=== PATIENT | male | born 1965 | race Caucasian/White ===

== ENCOUNTER 2017-06-25 09:33 | Emergency (ER) | payer BC ==
[2017-06-25] MEDS ORDERED: FUROSEMIDE 20 MG/2 ML VIAL IVP STA (09:52)
--- NOTE | 2017-06-25 09:54 | ED Physician Documentation ---
History of Present Illness - Stated complaint Stated Complaint: SWOLLEN LEGS - Chief complaint Chief Complaint: Ext Problem - History obtained from History obtained from: Patient - Additonal information Additional information: The patient is a 52-year-old male who complains of swelling of his lower extremities bilaterally. He has had swelling of his legs since shortly after surgery 9 days ago, when he had a hemorrhoid operation under general anesthesia. The swelling of his feet and ankles has been getting slightly better over the past 2 days, but is concerning him because of its persistence. He denies any fever, chest pain, cough, nausea or vomiting. He had been using Dilaudid and oxycodone post surgery until 3 days ago when he ran out. Since then he has been using Vicodin, 3 tablets per day. He has noticed decreased bowel movement as well as decreased urine output while on the narcotic medication. He denies history of similar symptoms in the past. Review of Systems Constitutional: denies: Fever Nose: denies: Congestion Throat: denies: Sore throat Cardiac: denies: Chest pain / pressure, Palpitations Respiratory: denies: Dyspnea, Cough GI: denies: Abdominal Pain, Nausea, Vomiting : denies: Dysuria Skin: denies: Rash Musculoskeletal: reports: Extremity swelling. denies: Back pain Neurologic: denies: Focal weakness, Numbness, Headache PD PAST MEDICAL HISTORY - Past Medical History Past Medical History: Yes Cardiovascular: Hypertension Endocrine/Autoimmune: None - Past Surgical History Past Surgical History: Yes General: Other (Inguinal hernia repair) Ortho: Other (Status post ORIF right ankle fracture.) Other past surgical history: 9 days status post hemorrhoidectomy. - Present Medications Home Medications: Ambulatory Orders Medication Instructions Recorded Confirmed Amlodipine Besylate 10 mg PO DAILY 12/09/14 06/25/17 Gabapentin 600 mg PO TID 12/09/14 06/25/17 Losartan Potassium 50 mg PO DAILY 12/09/14 06/25/17 HYDROcod/ACETAM 5/325 [[place] 5/325] 1 - 2 ea PO Q6H PRN 06/25/17 06/25/17 - Allergies Allergies/Adverse Reactions: Allergies Allergy/AdvReac Type Severity Reaction Status Date / Time No Known Drug Allergies Allergy Verified 12/09/14 20:09 - Social History Does the pt smoke?: Yes Smoking Status: Current every day smoker Does the pt drink ETOH?: Yes Does the pt have substance abuse?: No - Immunizations Immunizations are current?: Yes - POLST Patient has POLST: No PD ED PE NORMAL - Vitals Vital signs reviewed: Yes (borderline hypertension initially.) - General General: Alert and oriented X 3, Well developed/nourished, Other (Older of alcohol on his breath.) - HEENT HEENT: Atraumatic, EOMI, Pharynx benign - Neck Neck: No adenopathy, No JVD - Cardiac Cardiac: RRR, No murmur - Respiratory Respiratory: No respiratory distress, Clear bilaterally - Abdomen Abdomen: Soft, Non tender - Derm Derm: No rash - Extremities Extremities: No calf tenderness / cord, Other (One plus pedal edema bilaterally. No warmth or erythema, and no calf tenderness. Distal neurovascular is intact. There are well-healed surgical scars at the right ankle.) - Neuro Neuro: Alert and oriented X 3, No motor deficit, Normal speech Results - Vitals Vitals: Oxygen O2 Source Room air - Labs Labs: Laboratory Tests 06/25/17 06/25/17 06/25/17 10:08 10:08 10:30 WBC 8.0 RBC 4.06 L Hgb 14.4 Hct 40.9 L MCV 100.9 H MCH 35.4 H MCHC 35.1 RDW 13.0 Plt Count 183 MPV 7.8 Neut # 4.3 Lymph # 2.4 [place] # 0.9 Eos # 0.2 Baso # 0.1 Absolute Nucleated RBC 0.01 Nucleated RBCs 0.1 Sodium 141 Potassium 3.3 L Chloride 105 Carbon Dioxide 27 Anion Gap 9.0 BUN 6 Creatinine 0.8 Estimated GFR (MDRD) 101 Glucose 117 H Calcium 9.0 Total Bilirubin 0.5 AST 157 H ALT 154 H Alkaline Phosphatase 168 H Total Protein 8.0 Albumin 3.4 Globulin 4.6 H Albumin/Globulin Ratio 0.7 L Lipase 22 Urine Color YELLOW Urine Clarity CLEAR Urine pH 7.0 Ur Specific [place] 1.010 Urine Protein NEGATIVE Urine Glucose (UA) NEGATIVE Urine Ketones NEGATIVE Urine Occult Blood NEGATIVE Urine Nitrite NEGATIVE Urine Bilirubin NEGATIVE Urine Urobilinogen 0.2 (NORMAL) Ur Leukocyte Esterase NEGATIVE Ur Microscopic Review NOT INDICATED Urine Culture Comments NOT INDICATED Ethyl Alcohol 118.7 PD MEDICAL DECISION MAKING - ED course Complexity details: reviewed results, re-evaluated patient, considered differential, d/w patient ED course: The patient's presentation is significant for bilateral pedal edema consistent with third spacing of fluids. His presentation does not suggest cellulitis, and I doubt deep venous thrombosis, which was considered, especially given the patient's recent surgery. It is likely that his pedal edema is a result of IV fluid administration in the farrukh-operative time period, exacerbated by narcotic and alcohol use with resulting dependent edema. There is no clinical evidence of renal insufficiency, with a BUN of 6 and creatinine 0.8. Treatment in the emergency department included administration of Lasix 20 mg IV. The patient diuresed well with this treatment. He repeatedly requested pain medication, and was subsequently given 1 Percocet tablet orally. I discussed with him the likely cause of his dependent edema, symptomatic treatment and outpatient follow-up, as well as potentially worrisome signs or symptoms that should prompt reevaluation in the emergency department. Departure - Departure Disposition: 01 Home, Self Care Clinical Impression: Fluid retention in legs Qualifiers: Laterality: bilateral Qualified Code(s): R60.0 - Localized edema Condition: Stable Instructions: ED Edema Legs Bilateral Follow-Up: RADHA RODRIGUEZ [Physician No Access] - Comments: Keep your legs elevated as much of the time as possible. Follow-up with your primary physician within 1 week. Call to schedule appointment. Return to the emergency department if you develop increasing leg swelling, shortness of breath, or otherwise worsening symptoms. Discharge Date/Time: 06/25/17 11:15
[2017-06-25] MEDS ORDERED: SODIUM CHLORIDE FLUSH 0.9% 10 ML SYRINGE IVP ONE (09:59)
[2017-06-25] MEDS ORDERED: FUROSEMIDE 20 MG/2 ML VIAL IVP ONE (09:59)
[2017-06-25 10:24] LABS: BASOPHILS # (AUTO) 0.1 10^3/uL (0.0-0.1); EOSINOPHILS # (AUTO) 0.2 10^3/uL (0.0-0.7); HCT - HEMATOCRIT 40.9 % (42.0-52.0); HGB - HEMOGLOBIN 14.4 g/dL (14.0-18.0); LYMPHOCYTES # (AUTO) 2.4 10^3/uL (1.5-3.5); LYMPHOCYTES % (AUTO) 30.4 %; MEAN CORPUSCULAR HEMOGLOBIN 35.4 pg (27.0-31.0); MEAN CORPUSCULAR HGB CONC 35.1 g/dL (32.0-36.0); MEAN CORPUSCULAR VOLUME 100.9 fL (80.0-94.0); MEAN PLATELET VOLUME 7.8 fL (7.4-11.4); MONOCYTES # (AUTO) 0.9 10^3/uL (0.0-1.0); MONOCYTES % (AUTO) 11.6 %; NEUTROPHILS # (AUTO) 4.3 10^3/uL (1.5-6.6); NUCLEATED RED BLOOD CELLS AUTO 0.1 /100WBC; RED BLOOD COUNT 4.06 10^6/uL (4.70-6.10)
[2017-06-25 10:27] LABS: ALBUMIN/GLOBULIN RATIO 0.7 (1.0-2.2); BILIRUBIN,TOTAL 0.5 mg/dL (0.2-1.0); CREATININE 0.8 mg/dL (0.6-1.2); POTASSIUM 3.3 mmol/L (3.5-5.0)
[2017-06-25] MEDS ORDERED: oxyCOD/ACETAMIN 5 MG/325 MG TABLET PO STA (10:29)
[2017-06-25] MEDS ORDERED: oxyCOD/ACETAMIN 5 MG/325 MG TABLET PO ONE (10:36)
[2017-06-25 10:42] LABS: BILIRUBIN,URINE NEGATIVE (NEGATIVE)
[2017-06-25 10:46] LABS: UA CHARGE (STRIP ONLY) YES; UR CULTURE IF IND NOT INDICATED
[2017-06-25 11:08] VITALS: BP 120/70
== END 2017-06-25 11:15 | disposition home or self-care (01) ==
LOC: ED 09:33
DX: R60.0 Localized edema (principal); I10 Essential (primary) hypertension; F17.200 Nicotine dependence, unspecified, uncomplicated
CPT/HCPCS: 36415; 80053; 80320; 81003; 83690; 85025; 96374; 99283; 99284; A9270; 81001; 87086

== ENCOUNTER 2018-04-03 11:20 | Emergency (ER) | payer BC ==
[2018-04-03 11:31] VITALS: BP 167/95
== END 2018-04-03 11:56 | disposition left against medical advice (07) ==
LOC: ED 11:20
DX: Z53.21 Procedure and treatment not carried out due to patient leaving prior to being seen by health care provider (principal)

== ENCOUNTER 2019-11-29 09:40 | Emergency (ER) | payer BC ==
--- NOTE | 2019-11-29 10:03 | ED Physician Documentation ---
PD HPI FOCAL NEURO - Stated complaint Stated Complaint: FACIAL NUMBNESS - Chief complaint Chief Complaint: Neuro - History obtained from History obtained from: Patient - History of Present Illness Timing - onset: Yesterday Timing - duration: Days (2) Timing - details: Gradual onset, Still present Severity of deficit: Moderate (feeling of left side of mouth not working right, with some dribbling food and felt "fat". Today having trouble chewing, and feels that eye is not completely closing. Facial drooping. No symptoms to arms and legs generally. He says eh has mild numbness left middle fingers but has had that in the past from carpal tunnel. No weakness of the hand/arm.) Weakness: Face, Left. No: Arm, Leg Numbness: No: Face, Arm, Leg Associated symptoms: No: Headache, Nausea / vomiting, Syncope, Fall, Head injury Contributing factors: positive: Other (he states he is borderline diabetic, but not on meds as yet.). negative: Anticoagulated Baseline status: positive: A&OX3, ambulatory, indep, Cane Similar symptoms before: Has not had sx before Recently seen: Not recently seen Review of Systems Constitutional: denies: Fever, Chills, Myalgias Eyes: denies: Loss of vision, Decreased vision, Photophobia Ears: denies: Loss of hearing, Ear pain, Drainage/discharge Nose: denies: Rhinorrhea / runny nose, Congestion, Sinus pressure / pain Throat: denies: Dental pain / toothache, Oral lesions / sores, Sore throat GI: denies: Nausea, Vomiting, Diarrhea Neurologic: reports: Focal weakness (just left face). denies: Generalized weakness, Confused, Altered mental status, Headache, Head injury PD PAST MEDICAL HISTORY - Past Medical History Cardiovascular: Hypertension Endocrine/Autoimmune: None - Past Surgical History Past Surgical History: Yes General: Other (Inguinal hernia repair) Ortho: Other (Status post ORIF right ankle fracture.) - Present Medications Home Medications: Ambulatory Orders Medication Instructions Recorded Confirmed Amlodipine Besylate 10 mg PO DAILY 12/09/14 06/25/17 Gabapentin 600 mg PO TID 12/09/14 06/25/17 Losartan Potassium 50 mg PO DAILY 12/09/14 06/25/17 Buprenorphine HCl/Naloxone HCl 04/03/18 [Suboxone 12 mg-3 mg Sl Film] Acyclovir 400 mg PO 5XD #25 tablet 01/29/20 cloNIDine [Catapres] 0.1 mg PO QPM #20 tablet 11/29/19 dexAMETHasone [Decadron] 4 mg PO DAILY #5 tablet 11/29/19 - Allergies Allergies/Adverse Reactions: Allergies Allergy/AdvReac Type Severity Reaction Status Date / Time No Known Drug Allergies Allergy Verified 11/29/19 09:55 - Social History Does the pt smoke?: Yes Smoking Status: Current every day smoker Does the pt drink ETOH?: Yes Does the pt have substance abuse?: No - Immunizations Immunizations are current?: Yes - POLST Patient has POLST: No PD ED PE NORMAL - Vitals Vital signs reviewed: Yes - General General: Alert and oriented X 3, No acute distress, Well developed/nourished - HEENT HEENT: PERRL, EOMI, Ears normal, Moist mucous membranes, Pharynx benign, Dentition benign - Neck Neck: Supple, no meningeal sign, No adenopathy, No JVD - Cardiac Cardiac: RRR, No murmur - Respiratory Respiratory: Clear bilaterally - Back Back: No CVA TTP - Derm Derm: Normal color, Warm and dry - Extremities Extremities: No tenderness to palpate, Normal ROM s pain, No calf tenderness / cord, Other (1+ edema in both ankles and lower legs. ) - Neuro Neuro: Alert and oriented X 3, No sensory deficit, Normal speech. 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 The weakness does involve the forehead as well. Not able to puff out cheeks due to left sided mouth weak) Results - Vitals Vitals: Vital Signs - 24 hr 11/29/19 11/29/19 09:55 11:53 Temperature 37 C 37.3 C Heart Rate 104 H 98 Respiratory 19 16 Rate Blood Pressure 153/77 H 145/86 H O2 Saturation 95 93 Oxygen O2 Source Room air - Labs Labs: Laboratory Tests 11/29/19 11/29/19 11/29/19 10:50 10:50 10:50 WBC 10.3 RBC 4.62 L Hgb 15.0 Hct 45.7 MCV 98.9 H MCH 32.5 H MCHC 32.8 RDW 13.8 Plt Count 247 MPV 9.2 Neut # (Auto) 6.9 H Lymph # (Auto) 2.2 [place] # (Auto) 0.9 Eos # (Auto) 0.2 Baso # (Auto) 0.0 Absolute Nucleated RBC 0.00 Nucleated RBC % 0.0 ESR Sodium 134 L Potassium 3.9 Chloride 98 L Carbon Dioxide 25 Anion Gap 11.0 BUN 9 Creatinine 0.6 Estimated GFR (MDRD) 140 Glucose 125 H Glycated Hemoglobin 7.0 H Estim Average Glucose 154 H Calcium 8.6 Total Bilirubin 1.0 AST 80 H ALT 102 H Alkaline Phosphatase 100 Total Protein 8.8 H Albumin 3.7 Globulin 5.1 H Albumin/Globulin Ratio 0.7 L Lipase 45 TSH 11/29/19 11/29/19 10:50 10:50 WBC RBC Hgb Hct MCV MCH MCHC RDW Plt Count MPV Neut # (Auto) Lymph # (Auto) [place] # (Auto) Eos # (Auto) Baso # (Auto) Absolute Nucleated RBC Nucleated RBC % ESR 9 Sodium Potassium Chloride Carbon Dioxide Anion Gap BUN Creatinine Estimated GFR (MDRD) Glucose Glycated Hemoglobin Estim Average Glucose Calcium Total Bilirubin AST ALT Alkaline Phosphatase Total Protein Albumin Globulin Albumin/Globulin Ratio Lipase TSH 2.19 PD MEDICAL DECISION MAKING - ED course Complexity details: reviewed results, considered differential (Guillen Palsy with weakness left side face including upper forehead. Can check labs for metabolic issues.), d/w patient Departure - Departure Disposition: 01 Home, Self Care Clinical Impression: Facial weakness, Guillen palsy Condition: Stable Record reviewed to determine appropriate education?: Yes Instructions: ED [place] Palsy Follow-Up: ESTEBAN OROSCO MD [Primary Care Provider] - Prescriptions: Acyclovir 400 mg PO 5XD #25 tablet cloNIDine [Catapres] 0.1 mg PO QPM #20 tablet dexAMETHasone [Decadron] 4 mg PO DAILY #5 tablet Comments: Stay well-hydrated. Continue usual medications. Your basic blood tests appear normal. Your blood sugar slightly elevated but not significant enough to call it diabetes. Use the acyclovir as directed for potential viral cause. Decadron steroid daily for 5 days to decrease inflammation of the nerve. Follow-up with your primary care next week, call for an appointment. Use lubricating eyedrops if needed for your eye. You can add clonidine at night to help with sleep. Return if you have symptoms develop in other body parts. Discharge Date/Time: 11/29/19 11:54
[2019-11-29] MEDS ORDERED: CHERRY SYRUP 10 ML UDC PO ONE (10:38)
[2019-11-29] MEDS ORDERED: DEXAMETHASONE 10 MG/ML VIAL PO STA (10:38)
[2019-11-29] MEDS ORDERED: ACYCLOVIR 200 MG CAPSULE PO STA (10:38)
[2019-11-29] MEDS ORDERED: HYDROcod/ACETAM 5/325 MG TABLET PO STA (10:38)
[2019-11-29 10:59] LABS: BASOPHILS % (AUTO) 0.4 %; EOSINOPHILS # (AUTO) 0.2 10^3/uL (0.0-0.7); EOSINOPHILS % (AUTO) 1.8 %; LYMPHOCYTES # (AUTO) 2.2 10^3/uL (1.5-3.5); LYMPHOCYTES % (AUTO) 21.4 %; MEAN CORPUSCULAR HEMOGLOBIN 32.5 pg (27.0-31.0); MEAN CORPUSCULAR HGB CONC 32.8 g/dL (32.0-36.0); MEAN CORPUSCULAR VOLUME 98.9 fL (80.0-94.0); MEAN PLATELET VOLUME 9.2 fL (7.4-11.4); MONOCYTES # (AUTO) 0.9 10^3/uL (0.0-1.0); MONOCYTES % (AUTO) 8.8 %; NEUTROPHILS # (AUTO) 6.9 10^3/uL (1.5-6.6); NEUTROPHILS % (AUTO) 66.9 %; PLT - PLATELET COUNT 247 10^3/uL (130-450); RED BLOOD COUNT 4.62 10^6/uL (4.70-6.10); RED CELL DISTRIBUTION WIDTH 13.8 % (12.0-15.0); WHITE BLOOD COUNT 10.3 x10^3/uL (4.8-10.8)
[2019-11-29 11:10] LABS: ALBUMIN 3.7 g/dL (3.2-5.5); ALBUMIN/GLOBULIN RATIO 0.7 (1.0-2.2); CALCIUM 8.6 mg/dL (8.5-10.3); CREATININE 0.6 mg/dL (0.6-1.2); TOTAL PROTEIN 8.8 g/dL (6.7-8.2)
[2019-11-29 11:15] LABS: HB2 TOTAL 15.6 g/dL; HEMOGLOBIN A1C 0.83 g/dL
[2019-11-29 11:54] VITALS: BP 145/86
== END 2019-11-29 11:54 | disposition home or self-care (01) ==
LOC: ED 09:40
DX: G51.0 Bell's palsy (principal); I10 Essential (primary) hypertension; F17.200 Nicotine dependence, unspecified, uncomplicated; R73.09 Other abnormal glucose
CPT/HCPCS: 36415; 83036; 83690; 85651; 99283; 99284; A9270; 80053; 84443; 85025